=== PATIENT | male | born 1990 | race African-American/Black ===

== ENCOUNTER 2017-08-21 13:51 | Emergency (ER) | payer BC ==
[~2017-08-21] VITALS: Ht 180.3 cm; Wt 101.1 kg
[~2017-08-21 13:51] MED LIST: CELEBREX200 MG PO; CRESTOR20 MG PO; LOTENSIN5 MG PO; METAXALONE800 MG PO; NEXIUM40 MG PO; NO HOME MEDS; OXYCODONE HCL5 M1 PO; PERCOCET 5/31 TABLET PO; PROMETHAZINE HC25 M1 PO; PROPANOLOL PO; ULTRAM50 MG PO; ZOFRAN4 MG PO
[2017-08-21 15:31] LABS: HEMATOCRIT 44.1 % (38.0-50.0); HEMOGLOBIN 14.7 G/DL (12.5-16.6); MCH 29.9 PG (29.0-34.0); MCHC 33.3 G/DL (30.0-36.0); MCV 89.8 FL (86-99); PLATELET COUNT 247 K/uL (156-360); RBC DIS.WIDTH-CV 12.6 % (11.8-14.6); RBC DIS.WIDTH-SD 41.7 % (39-53); RED BLOOD COUNT 4.91 M/uL (4.00-5.50); WHITE BLOOD COUNT 5.4 K/uL (4.1-10.2)
[2017-08-21 15:39] LABS: ALBUMIN 3.5 g/dL (3.2-4.8); CHLORIDE 109 mEq/L (99-109); POTASSIUM 4.6 mEq/L (3.7-5.4); SODIUM 141 mEq/L (136-147)
[2017-08-21 15:41] LABS: GLUCOSE 92 mg/dL (70-99); TOTAL PROTEIN 5.7 g/dL (6.4-8.3)
[2017-08-21 15:43] LABS: TOTAL BILIRUBIN 0.6 mg/dL (0.0-1.0)
[2017-08-21 15:45] LABS: ALKALINE PHOSPHATASE 49 IU/L (3-129); GFR ESTIMATE (CALCULATED) > 59 mL/min/ (58.99-99999)
[2017-08-21 15:46] LABS: UREA NITROGEN (BUN) 7 mg/dL (9-23)
[2017-08-21 15:47] LABS: APPEARANCE CLEAR ((CLEAR)); BILIRUBIN NEGATIVE; BLOOD NEGATIVE; COLOR YELLOW ((YELLOW)); GLUCOSE (STRIP) NEGATIVE; KETONES NEGATIVE; LEUKOCYTES MODERATE; NITRITE NEGATIVE; PROTEIN (STRIP) NEGATIVE; UROBILINOGEN 0.2 MG/DL (0.2-1.0)
[2017-08-21 15:47] LABS: AST (GOT) 18 IU/L (2-34)
[2017-08-21 15:48] LABS: ALT (GPT) 16 IU/L (3-49)
[2017-08-21 15:52] LABS: BACTERIA RARE /HPF; EPITHELIAL CELLS RARE /HPF; MUCUS TRACE /LPF; RED BLOOD CELLS 0-5 /HPF (0-5); UCUL ADDED? YES; WHITE BLOOD CELLS 15-20 /HPF (0-5)
[2017-08-21] MEDS ORDERED: NAPROXEN500 MG PO (16:07)
[2017-08-21 16:15] VITALS: BP 120/68
== END 2017-08-21 16:11 | disposition home or self-care (01) ==
LOC: EME 13:51
PROVIDERS: Physician Assistant Medical
DX: R10.32 Left lower quadrant pain (principal); F17.200 Nicotine dependence, unspecified, uncomplicated
CPT/HCPCS: 80053; 81003; 85027; 87077; 87086; 99281; 99284; J1885